=== PATIENT | male | born 1960 | race Caucasian/White ===

== ENCOUNTER 2016-11-11 22:12 | Emergency (ER) | payer BC, OTHER ==
[2016-11-11] MEDS ORDERED: Tetan/Diph/Pertus SYR(Tdap)* 0.5 ML SYR(BOOSTRIX) use SYR IM ONE (23:22)
[2016-11-12] MEDS ORDERED: Ciprofloxacin TAB* 500 MG PO ONE (00:58)
[2016-11-12] MEDS ORDERED: Amoxicillin/Clavulanate TAB* 500 MG PO ONE (01:02)
[2016-11-12] MEDS ORDERED: Amoxicillin/Clavulanate TAB* 875 MG PO ONE (01:04)
--- NOTE | 2016-11-12 01:12 | ED ---
Lower Extremity - HPI Summary HPI Summary: Pt here w/ RLE puncture wound - foot slipped on dock and scraped bello on dock - [place]ald[place] water exposed. Bleeding. He cleaned with some peroxide as well. Tetanus is UTD. Area if throbbing but he declines pain medication at this time. Denies numbness, tingling, weakness. - History of Current Complaint Chief Complaint: EDLacSutureRecheck Stated Complaint: RIGHT LEG LAC Time Seen by Provider: 11/11/16 23:14 Hx Obtained From: Patient Pain Intensity: 5 - Allergies/Home Medications Allergies/Adverse Reactions: Allergies Allergy/AdvReac Type Severity Reaction Status Date / Time No Known Allergies Allergy Verified 11/11/16 22:23 PMH/Surg Hx/FS Hx/Imm Hx Previously Healthy: Yes Endocrine/Hematology History: Denies: Hx Anticoagulant Therapy, Hx Blood Disorders - Immunization History Date of Tetanus Vaccine: unknown Infectious Disease History: Yes Infectious Disease History: Denies: Traveled Outside the [place] in Last 30 Days - Social History Occupation: Employed Full-time Lives: With Family Alcohol Use: Occasionally Hx Substance Use: No Substance Use Type: Reports: None Hx Tobacco Use: No Smoking Status (MU): Never Smoked Tobacco Review of Systems Constitutional: Negative Negative: Fever, Chills Positive: no symptoms reported Musculoskeletal: Other - bello is sore where he attained injury Skin: Other - see HPI Neurological: Negative Negative: Weakness, Paresthesia, Numbness Psychological: Normal All Other Systems Reviewed And Are Negative: Yes Physical Exam Triage Information Reviewed: Yes Vital Signs On Initial Exam: Initial Vitals Temp Pulse Resp BP Pulse Ox 98.3 F 67 16 142/97 99 11/11/16 22:18 11/11/16 22:18 11/11/16 22:18 11/11/16 22:18 11/11/16 22:18 Vital Signs Reviewed: Yes Appearance: Positive: Well-Appearing, No Pain Distress - mild, Well-Nourished Skin: Positive: Warm - gouged puncture wound over Rt middle 1/3 of anterior tibial region - oozing blood Head/Face: Positive: Normal Head/Face Inspection Eyes: Positive: Normal ENT: Positive: Hearing grossly normal Respiratory/Lung Sounds: Positive: Breath Sounds Present Cardiovascular: Positive: Normal, Pulses are Symmetrical in both Upper and Lower Extremities Musculoskeletal: Positive: Normal, Strength/ROM Intact Neurological: Positive: Normal, Sensory/Motor Intact, Alert, Oriented to Person Place, Time, CN Intact II-III Psychiatric: Positive: Normal Procedures - Laceration/Wound Repair 1 Location: upper extremity - Rt LE Description: Irregular - jagged puncture wound Length, Depth and Shape: 3mm puncture wound x 4mm deep Betadine Prep?: No Irrigated w/ Saline (ccs): 250 - hibaclens solution Laceration/Wound Explored: contaminated - wood flecks Number of Sutures: 0 Layer Closure?: No Sterile Dressing Applied?: Yes - sterile saline packing covered w/ sterile gauze and wrapped w/ coban Diagnostics - Vital Signs Vital Signs Temp Pulse Resp BP Pulse Ox 11/11/16 23:18 98.3 F 67 18 142/87 100 11/11/16 22:18 98.3 F 67 16 142/97 99 - Laboratory Lab Statement: Any lab studies that have been ordered have been reviewed, and results considered in the medical decision making process. Lower Extremity Course/Dx - Course Course Of Treatment: Discussed option of closure with mattress suture d/t area of high tension vs. leaving open healing by second intention alone vs. packing w / healing by second intention w/ Dr. Doll. Pt agreed to packing and will return to ED in 2 days for packing change, wound check. Started anbx d/t nature of injury. Initially considered cipro to cover pseudomonas however pt is very active and risk of tendon injury is a serious concern for him (plans to run a 13 mile race in a couple of weeks). Irrigated area well and care taken to pack in sterile fashion so started augmentin to cover staph/strep and a few atypicals. Close monitoring advised and danger s/sx of when to return to ED reviewed. Pt voices understanding. - Diagnoses Provider Diagnoses: Puncture wound of right lower leg - Physician Notifications Discussed Care Of Patient With: Dr. Finn Discharge - Discharge Plan Condition: Stable Disposition: HOME Prescriptions: Amoxicillin/Clavulanate TAB* [Augmentin TAB 875*] 875 mg PO BID #19 tab Patient Education Materials: Puncture Wound (ED) Referrals: No Primary Care Phys,NOPCP [Primary Care Provider] - Additional Instructions: You have sterile saline packing in your wound at this time. Keep pressure dressing in place until wound dressing change in 2 days (return to ED for wound cleanse and packing change). Rest, Ice, Compress, Elevate Ibuprofen with food for pain - alternate with acetaminophen Complete antibiotics *If you develop redness, swelling, purulent drainage, fever, streaking, return to ED
[2016-11-12 01:16] VITALS: BP 140/75
--- NOTE | 2016-11-12 07:49 | RAD ---
HISTORY: Penetrating trauma to right lower extremity COMPARISONS: None VIEWS: 4, Frontal and lateral views of the right foreleg FINDINGS: BONE DENSITY: Normal. BONES: There is no displaced fracture. JOINTS: There is no arthropathy. ALIGNMENT: There is no dislocation. SOFT TISSUES: Unremarkable. OTHER FINDINGS: There is no radiopaque foreign body. IMPRESSION: NO ACUTE OSSEOUS INJURY. NO RADIOPAQUE FOREIGN BODY. IF SYMPTOMS PERSIST, RECOMMEND REPEAT IMAGING.
== END 2016-11-12 01:16 | disposition home or self-care (01) ==
LOC: ED 22:12
DX: S81.831A Puncture wound without foreign body, right lower leg, initial encounter (principal); W22.8XXA Striking against or struck by other objects, initial encounter; Y93.9 Activity, unspecified; Y92.9 Unspecified place or not applicable; Y99.9 Unspecified external cause status
CPT/HCPCS: 99282; A9270-GY

== ENCOUNTER → 2016-11-13 17:23 | Emergency (ER) | payer BC ==
[2016-11-13 17:26] VITALS: BP 130/80
--- NOTE | 2016-12-06 08:48 | ED ---
ED Suture/Wound Check - HPI Summary HPI Summary: Pt here for Rt bello wound recheck and packing change from puncture wound injury 2 days ago. Dressing remains in place and is dry. Area is sore - has not been resting - has been doing yard work (ie. squatting, kneeling, bending, etc). Denies fever, chills, N/V, numbness, tingling, weakness. Taking medications as directed. - History Of Current Complaint Chief Complaint: EDGeneral Stated Complaint: WOUND RECHECK Time Seen by Provider: 11/13/16 18:15 Hx Obtained From: Patient Pain Intensity: 4 Pain Scale Used: 0-10 Numeric - Allergies/Home Medications Allergies/Adverse Reactions: Allergies Allergy/AdvReac Type Severity Reaction Status Date / Time No Known Allergies Allergy Verified 11/11/16 22:23 PMH/Surg Hx/FS Hx/Imm Hx Previously Healthy: Yes Endocrine/Hematology History: Denies: Hx Anticoagulant Therapy, Hx Blood Disorders - Immunization History Date of Tetanus Vaccine: unknown Infectious Disease History: No Infectious Disease History: Denies: Traveled Outside the [place] in Last 30 Days - Social History Alcohol Use: Occasionally Hx Substance Use: No Substance Use Type: Reports: None Hx Tobacco Use: No Smoking Status (MU): Never Smoked Tobacco Review of Systems Negative: Fever, Chills All Other Systems Reviewed And Are Negative: Yes Physical Exam Triage Information Reviewed: Yes Vital Signs On Initial Exam: Initial Vitals Temp Pulse Resp BP Pulse Ox 98.4 F 78 18 130/80 98 11/13/16 17:24 11/13/16 17:24 11/13/16 17:24 11/13/16 17:24 11/13/16 17:24 Vital Signs Reviewed: Yes Appearance: Positive: Well-Appearing, No Pain Distress, Well-Nourished Skin: Positive: Warm - Rt bello w/ erythema at edges of bandage border - bandage appears to be snuggly in place - dry; upon removal, serosanginous d/c from wound onto bandage; packing removed w/o difficulty, irrigated w/ sterile saline and repacked w/ sterile gauze strip; erythema reduces once bandage removed and no erythema about wound itself - suspect this was from pressure of bandage itself - no streaking - pt tolerated dressing change well Head/Face: Positive: Normal Head/Face Inspection Respiratory/Lung Sounds: Positive: Breath Sounds Present Cardiovascular: Positive: Pulses are Symmetrical in both Upper and Lower Extremities Musculoskeletal: Positive: Normal, Strength/ROM Intact Neurological: Positive: Normal, Sensory/Motor Intact Psychiatric: Positive: Normal Procedures - Procedure Summary Procedure Summary: see PE for dressing change details Diagnostics - Vital Signs Vital Signs Temp Pulse Resp BP Pulse Ox 11/13/16 19:13 99.2 F 11/13/16 17:26 98.4 F 79 18 130/80 99 11/13/16 17:24 98.4 F 78 18 130/80 98 - Laboratory Lab Statement: Any lab studies that have been ordered have been reviewed, and results considered in the medical decision making process. Course/Dx - Course Course Of Treatment: Pt presents for wound recheck and dressing change. Appears to be healing well and w/o acute infection. Packign and dressing changed - looser this time to reduce risk of swelling and skin irritation. Advised pt not to be so aggressive with the area to prevent aggravation and prevention of wound healing. WIll elevate, rest and ice as needed. F/u w/ wound clinic as directed. Return w/ danger s/sx as needed. Pt agrees w/ plan. - Clinical Impression Provider Diagnoses: Encounter for wound re-check Discharge - Discharge Plan Condition: Stable Disposition: HOME Patient Education Materials: Puncture Wound (ED) Referrals: [facility] [Outside] No Primary Care Phys,NOPCP [Primary Care Provider] - Additional Instructions: Your wound appears to be healing well however you have developed some redness above and below the wound which was presumed to be from a prolonged pressure dressing worn for 2 days along with activity, increasing inflammation of the already inflammed tissue. Your packing was removed today, wound cleaned and repacked - triple anbx dressing + Telfa + gauze + ANAND wrap. Due to the risky nature of this wound (ie. injured by wood and wald[place] water exposure), it is advised that you follow-up with the wound clinic in the next 1-2 days. Call tomorrow morning to schedule an appointment. Continue your antibiotics unless directed otherwise. Rest, ice, elevate If wound dressing becomes saturated with blood, remove - wash wound with soap and water - rinse well and reapply triple anbx ointment + clean dressing Wound Clinic: You may also establish with a PCP -referral line provided today. *If you develop worsening of redness, purulent drainage, excessive bleeding, fever, chills, return to ED
== END | disposition home or self-care (01) ==
LOC: ED 17:23
DX: S80.921D Unspecified superficial injury of right lower leg, subsequent encounter (principal); X58.XXXD Exposure to other specified factors, subsequent encounter
CPT/HCPCS: 99282

== ENCOUNTER 2018-05-08 07:44 | Inpatient (IN) | payer BC, OTHER ==
[2018-05-08] MEDS ORDERED: Aspirin 81 mg CHEW TAB* 81 MG TAB.CHEW PO ONE (07:49)
--- NOTE | 2018-05-08 07:58 | ED ---
HPI Chest Pain - HPI Summary HPI Summary: This pt is a 57 y/o male presenting to [facility] c/o midsternal chest pain since last night. Pt reports his chest pain began around 22:00, which he describes as pressure, burning, and nonradiating. He notes he did not have a big dinner prior to onset of chest pain, at around 18:30 pt had a sandwich at the [employer] that included cheese, pesto, caramelized onions, spinach, diet coke, and a few chips. Pt took Tums yesterday with minimal relief of chest pain. Upon waking up this morning pt states his chest pain persisted. Additionally reports nausea. He currently rates his pain 7/10 in severity. Denies vomiting, diaphoresis, SOB, palpitations, lightheadedness, dizziness. Chest pain is mildly alleviated with ambulation and it is aggravated with lying still. Pt has never had this pain in the past. Denies any PMHx. He does not take medications on a daily basis. Denies tobacco and drug use, but admits to a few drinks of alcohol a week. He did not drink alcohol yesterday. FHx of grandfather with fatal PR at an age younger than 55 years old. - History of Current Complaint Chief Complaint: EDChestPainROMI Time Seen by Provider: 05/08/18 07:48 Hx Obtained From: Patient Onset/Duration: Started Hours Ago, Still Present Timing: Lasting Hours Current Severity: Moderate Pain Intensity: 7 Pain Scale Used: 0-10 Numeric Chest Pain Location: Mid Sternal Chest Pain Radiates: No Character: Burning, Pressure/Squeezing - Pressure Aggravating Factor(s): Rest Alleviating Factor(s): Other: - ambulating Associated Signs and Symptoms: Positive: Chest Pain, Nausea. Negative: Dizziness, Shortness of Breath, Fever, Chills, Lightheadedness, Diaphoresis, Palpitations, Vomiting - Allergy/Home Medications Allergies/Adverse Reactions: Allergies Allergy/AdvReac Type Severity Reaction Status Date / Time No Known Allergies Allergy Verified 11/11/16 22:23 Home Medications: Home Medications NK [No Home Medications Reported] 05/08/18 [History Confirmed 05/08/18] PMH/Surg Hx/FS Hx/Imm Hx Endocrine/Hematology History: Denies: Hx Anticoagulant Therapy, Hx Blood Disorders, Hx Diabetes Cardiovascular History: Denies: Hx Hypertension - Surgical History Surgery Procedure, Year, and Place: Tonsillectomy - Immunization History Date of Tetanus Vaccine: unknown Infectious Disease History: No Infectious Disease History: Denies: Traveled Outside the [place] in Last 30 Days - Family History Known Family History: Positive: Cardiac Disease - Grandfather with fatal PR at an age earlier than 55 Family History: Mother with CA - Social History Alcohol Use: Occasionally Hx Substance Use: No Substance Use Type: Reports: None Hx Tobacco Use: No Smoking Status (MU): Never Smoked Tobacco Review of Systems Negative: Fever, Chills, Skin Diaphoresis Positive: Chest Pain. Negative: Palpitations Negative: Shortness Of Breath Positive: Nausea. Negative: Vomiting Neurological: Other - NEG: lightheadedness, dizziness All Other Systems Reviewed And Are Negative: Yes Physical Exam - Summary Physical Exam Summary: VITAL SIGNS: Reviewed. GENERAL: Patient is a well-developed and nourished male who is lying comfortable in the stretcher. Patient is not in any acute respiratory distress. HEAD AND FACE: No signs of trauma. No ecchymosis, hematomas or skull depressions. No sinus tenderness. EYES: PERRLA, EOMI x 2, No injected conjunctiva, no nystagmus. EARS: Hearing grossly intact. Ear canals and tympanic membranes are within normal limits. MOUTH: Oropharynx within normal limits. NECK: Supple, trachea is midline, no adenopathy, no JVD, no carotid bruit, no c- spine tenderness, neck with full ROM. CHEST: Symmetric, no tenderness at palpation LUNGS: Clear to auscultation bilaterally. No wheezing or crackles. CVS: Regular rate and rhythm, S1 and S2 present, no murmurs or gallops appreciated. ABDOMEN: Soft, non-tender. No signs of distention. No rebound, no guarding, and no masses palpated. Bowel sounds are normal. EXTREMITIES: FROM in all major joints, no edema, no cyanosis or clubbing. NEURO: Alert and oriented x 3. No acute neurological deficits. Speech is normal and follows commands. SKIN: Dry and warm Triage Information Reviewed: Yes Vital Signs On Initial Exam: Initial Vitals Temp Pulse Resp BP Pulse Ox 97.6 F 52 16 145/90 100 05/08/18 07:46 05/08/18 07:46 05/08/18 07:46 05/08/18 07:46 05/08/18 07:46 Vital Signs Reviewed: Yes Diagnostics - Vital Signs Vital Signs Temp Pulse Resp BP Pulse Ox 05/08/18 07:46 97.6 F 52 16 145/90 100 - Laboratory Result Diagrams: 05/08/18 08:01 05/08/18 08:01 Lab Statement: Any lab studies that have been ordered have been reviewed, and results considered in the medical decision making process. - Radiology Chest XR Radiology Interpretation Completed By: Radiologist Summary of Radiographic Findings: IMPRESSION: No active cardiopulmonary disease is noted. Dr. Pereyra has reviewed this report. - EKG 08:08 Cardiac Rate: Bradycardia - at 49 bpm EKG Rhythm: Sinus Bradycardia EKG Comparison: Other - no old EKG for comparison Summary of EKG Findings: No ST elevations. Q wave in leads II, III, and aVF. Re-Evaluation - Re-Evaluation First Eval Re-Evaluation Time: 08:47 Comment: I discussed the test results with the pt. Awaiting cardiology consult. Second Eval Re-Evaluation Time: 08:54 Comment: Dr. Mercedes, gun profiler, is at bedside. Chest Pain Course/Dx - Course Assessment/Plan: This pt is a 57 y/o male presenting [facility] [place]/o midsternal chest pain since last night. Pt reports his chest pain began around 22:00, which he describes as pressure, burning, and nonradiating. He notes he did not have a big dinner prior to onset of chest pain, at around 18:30 pt had a sandwich at the [employer] that included cheese, pesto, caramelized onions, spinach, diet coke, and a few chips. Pt took Tums yesterday with minimal relief of chest pain. Upon waking up this morning pt states his chest pain persisted. Additionally reports nausea. He currently rates his pain 7/10 in severity. Denies vomiting, diaphoresis, SOB, palpitations, lightheadedness, dizziness. Chest pain is mildly alleviated with ambulation and it is aggravated with lying still. Pt has never had this pain in the past. Denies any PMHx. He does not take medications on a daily basis. Denies tobacco and drug use, but admits to a few drinks of alcohol a week. He did not drink alcohol yesterday. FHx of grandfather with fatal PR at an age younger than 55 years old. Blood test results without any significant abnormality except for glucose 121, AST 66, CPK is 542, CK-MB is 107, troponin is 3.06. Urinalysis is negative for UTI. Chest x -ray impression: No acute pathology. In the ED course the patient was given aspirin, nitroglycerin and Lopressor. Troponin is elevated therefore the patient was given heparin. At this point I discussed my physical exam and findings with Dr. Mercedes from cardiology who came and assessed the patient. After his assessment he thinks that the patient has a non-STEMI and he requests for the patient to be admitted to hospitalist service to the ICU and likely the patient will go to the laboratory manager. At this point the patient is hemodynamically stable, alert and oriented 3. I discussed my physical exam, findings and test results with Dr. Almendarez from the hospitalist services and she agrees to admit patient to her services. Patient is hemodynamically stable alert and oriented x 3. - Chest Pain Differential Diagnosis/HQI/PQRI: Acute PR, ACS, Angina, CHF, Chest Wall, GI Disease, Lower Respiratory Infection, Pulmonary Edema - Diagnoses Provider Diagnoses: Non-STEMI (non-ST elevated myocardial infarction) - Provider Notifications Discussed Care Of Patient With: Tera Mercedes Time Discussed With Above Provider: 08:50 Instructed by Provider To: Other - I discussed the case with Dr. Mercedes, gun profiler, who will come and see the pt in the ED. [09:12] I discussed with Dr. Almendarez, hospitalist, who accepted the pt for admission. - Critical Care Time Critical Care Time: 75-104 min Discharge - Sign-Out/Discharge Documenting (check all that apply): Patient Departure - [place] [facility] [place] Discharge Plan Condition: Stable Disposition: ADMITTED TO [facility] - Billing Disposition and Condition Condition: STABLE Disposition: Admitted to [facility] - Attestation Statements Document Initiated by Josee: Yes Documenting Scribe: Amanda Casanova Provider For Whom Riley is Documenting (Include Credential): Nghia Pereyra MD Scribe Attestation: Amanda Strong, scribed for Nghia Pereyra MD on 05/08/18 at 1830. Scribe Documentation Reviewed: Yes Provider Attestation: The documentation as recorded by the [email or web address], Amanda Lowoa accurately reflects the service I personally performed and the decisions made by me, Nghia Pereyra MD Status of Riley Document: Viewed
[2018-05-08 08:10] LABS: ABS Basophils 0 10^3/ul (0-0.2); ABS Eosinophils 0.1 10^3/ul (0-0.6); ABS Lymphocytes 1.3 10^3/ul (1.0-4.8); ABS Monocytes 0.7 10^3/ul (0-0.8); ABS Neutrophils 6.9 10^3/ul (1.5-7.7); ABS Nucleated RBC 0 10^3/ul; Eosinophil % 0.6 %; Hematocrit 44 % (42-52); Hemoglobin 15.5 g/dl (14.0-18.0); Lymphocyte % 14.7 %; Mean Corpuscular HGB Conc 35 g/dl (31-36); Mean Corpuscular Hemoglobin 33 pg (27-31); Mean Corpuscular Volume 94 fL (80-94); Mean Platelet Volume 7.8 fL (7.4-10.4); Nucleated Red Blood Cells % 0.1; Platelet Count 176 10^3/ul (150-450); Red Cell Distribution Width 13 % (10.5-15)
[2018-05-08 08:36] LABS: EGFR Non-African American 87.6 (>60)
[2018-05-08] MEDS ORDERED: Heparin for STEMI(*) 5,000 UNITS/ML 1 ML VIAL IV ONE (08:44)
[2018-05-08] MEDS ORDERED: Nitroglycerin TAB 0.4 MG* 0.4 MG TAB SL ONE (08:44)
[2018-05-08] MEDS ORDERED: Metoprolol Tartrate TAB* 25 MG PO ONE (08:44)
[2018-05-08] MEDS ORDERED: NS 0.9% 1000 ML*IV.FLUID IV ONE (08:52)
[2018-05-08 08:58] LABS: Urine Appearance Clear; Urine Blood Negative (Negative); Urine Color Yellow; Urine Ketones Negative (Negative); Urine Protein Negative (Negative); Urine Specific Gravity 1.018 (1.010-1.030); Urine Urobilinogen Negative (Negative)
--- NOTE | 2018-05-08 09:57 | ECHO ---
Patient: BERLIN JOSHI [facility] Rec#: [id number] : 1960 Date: 05/08/2018 Age: 57y Height: 180 cm / 70.9 in Weight: 88.45 kg / 194.9 lbs Sex: M BSA: 2.08 Room#: ED 3 Admit Date#: 05/08/2018 Type: Inpatient Referring: Tera Mercedes MD Reading: Tera Mercedes MD Silk Presser: Elinor Rodrigez,ANTONIOCS,RDMS CC: Noe Fonseca MD Transthoracic Echocardiogram Indication: CP BP: 145/90 HR: 55 Rhythm: Bradycardia Findings History: Previously healthy. Family history of CAD. Technical Comments: The study quality is fair. Left Ventricle: The left ventricular chamber size is normal. Mild concentric left ventricular hypertrophy is observed. There is a focal wall motion abnormality present. There is mildly decreased left ventricular systolic function. The estimated ejection fraction is 45-50%. There is no consistent Doppler evidence of clinically significant diastolic dysfunction. The mid inferior, and apical inferior wall segments are hypokinetic (score 2). Overall wallmotion score index is 2.00 Left Atrium: The left atrium is mildly dilated. Right Ventricle: The right ventricular chamber size and systolic function are within normal limits. Right Atrium: The right atrial cavity size is normal. Aortic Valve: The aortic valve is trileaflet. There is no evidence of aortic valve thickening. Systolic excursion of the aortic valve is normal. There is no evidence of aortic regurgitation. There is no evidence of aortic stenosis. Mitral Valve: The mitral valve leaflets appear normal. There is a trace of mitral regurgitation. There is no evidence of mitral stenosis. Tricuspid Valve: The tricuspid valve leaflets are normal. There is trace tricuspid regurgitation. No pulmonary hypertension is noted. Pulmonic Valve: The pulmonic valve appears normal. There is a trace pulmonic regurgitation. Pericardium: There is no significant pericardial effusion. Aorta: The aortic root appears normal. There is no dilatation of the aortic arch. Pulmonary Artery: The main pulmonary artery appears normal. Venous: The inferior vena cava is dilated. There is a greater than 50% respiratory change in the inferior vena cava dimension. Summary: There was not any prior study for comparison. Conclusions Mild concentric left ventricular hypertrophy is observed. The estimated ejection fraction is 45-50%. There is mildly decreased left ventricular systolic function. The mid inferior, and apical inferior wall segments are hypokinetic (score 2). There is no evidence of aortic stenosis. There is a trace of mitral regurgitation. There is trace tricuspid regurgitation. There is no significant pericardial effusion. Measurements Name Value Normal Range RVIDd (AP) 2D 3.3 cm (0.9 - 2.6) RVDdMajor (2D) 3.6 cm (2.2 - 4.4) RAd ISD 4CH 4.8 cm (3.4 - 4.9) RA (A4C)W 4.3 cm (2.9 - 4.6) IVSd (2D) 1.3 cm (0.6 - 1) LVPWd (2D) 1.3 cm (0.6 - 1) LVIDd (2D) 4.7 cm (3.6 - 5.4) LVIDs (2D) 3.8 cm - LV FS (2D) 20 % (25 - 45) Aortic Annulus 2.6 cm (1.4 - 2.6) Ao root diameter (2D) 3.6 cm (2.1 - 3.5) Ascending Ao 3.2 cm (2.1 - 3.4) Aortic arch 3.4 cm (1.8 - 3.4) LA dimension (AP) 2D 4.1 cm (2.3 - 3.8) LAd ISD 4CH 5.2 cm (2.9 - 5.3) LA ISD 4CH W 4.9 cm (2.5 - 4.5) Name Value Normal Range LA ESV SP 4CH (A/L) 84.83 ml - LA ESV SP 2CH (A/L) 78.07 ml - LA ESV BP (A/L) 82.29 ml - LA ESV BP (A/L) index 39 ml/m2 - LA ESV SP 4CH (MOD) 80.02 ml - LA ESV SP 2CH (MOD) 74.16 ml - Name Value Normal Range MV E-wave Vmax 0.5 m/sec - MV deceleration time 340 msec - MV A-wave Vmax 0.5 m/sec - MV E:A ratio 1 ratio - P. vein S-wave Vmax 0.5 m/sec - P. vein D-wave Vmax 0.3 m/sec - P. vein S:D Vmax ratio 1.9 ratio - P. vein A-wave duration 118 msec - LV septal e' Vmax 0.07 m/sec - LV lateral e' Vmax 0.09 m/sec - LV E:e' septal ratio 8 ratio - LV E:e' lateral ratio 6 ratio - Name Value Normal Range AV Vmax 1 m/sec - AV VTI 24 cm - AV peak gradient 4 mmHg - AV mean gradient 2.2 mmHg - LVOT Vmax 0.8 m/sec - LVOT VTI 18.4 cm - LVOT peak gradient 2.6 mmHg - LVOT mean gradient 1.2 mmHg - OSCAR Vmax 0.9 m/sec - Name Value Normal Range TR Vmax 2.5 m/sec - TR peak gradient 25 mmHg - RAP 3 mmHg - RVSP 28 mmHg - IVC diameter 2.3 cm - Name Value Normal Range PV Vmax 0.6 m/sec - PV peak gradient 1.4 mmHg - Wallmotion BAS Not Seen BA Not Seen BAL Not Seen GILMER Not Seen BI Not Seen BIS Not Seen MAS Not Seen MA Not Seen MAL Not Seen MIL Not Seen NV Hypokinetic MIS Not Seen Not Seen AA Not Seen AL Not Seen AI Hypokinetic APEX Not Seen
[2018-05-08] MEDS ORDERED: Nitroglycerin TAB 0.4 MG* 0.4 MG TAB SL PRN ×2 (09:58→13:05)
[2018-05-08] MEDS ORDERED: Morphine VIAL* 4 MG/ML VIAL (1 ml vial) IV PRN (09:58)
[2018-05-08] MEDS ORDERED: Heparin DRIP 25,000 UNITS(*) 25,000 UNITS/500 ML BAG IV SCH (10:15)
[2018-05-08] MEDS ORDERED: Ticagrelor* 90 MG TAB PO ONE (10:34)
[2018-05-08] MEDS ORDERED: Metoprolol Tartrate IV* 1 MG/ML 5 ML VIAL ONE (11:22)
[2018-05-08] MEDS ORDERED: fentaNYL* 50 MCG/ML 2 ML VIAL (100 MCG VIAL) ONE (11:26)
[2018-05-08] MEDS ORDERED: Heparin(*) 1000 UNIT/ML 10 ML VIAL CATH LAB IV ONE (11:27)
[2018-05-08] MEDS ORDERED: nitroGLYCERIN DRIP* 25,000 MCG/250 ML BTL ONE (11:27)
[2018-05-08] MEDS ORDERED: Midazolam* 1 MG/ML 10 ML VIAL (10 MG) ONE (11:27)
[2018-05-08] MEDS ORDERED: VERAPAMIL 2.5 MG/ML 2 ML VIAL ** 5 mg/2 ml ONE (11:27)
[2018-05-08] MEDS ORDERED: Heparin 2 UNITS/ML IVPREMIX* 3,000 ML IV ONE (11:27)
[2018-05-08] MEDS ORDERED: Lidocaine 1% INJ* 10 MG/ML 30 ML SDV ONE (11:27)
[2018-05-08] MEDS ORDERED: Iohexol 350 (CONTRAST) 200 ML MDV IV ONE ×3 (11:28→12:30)
[2018-05-08 11:51] LABS: INR 0.95 (0.77-1.02)
[2018-05-08] MEDS ORDERED: Metoprolol Tartrate IV* 1 MG/ML 5 ML VIAL IV ONE (12:00)
[2018-05-08] MEDS ORDERED: Bivalirudin(*) 250 MG VIAL ONE (12:12)
[2018-05-08] MEDS ORDERED: Ondansetron INJ* 2 MG/ML VIAL IV PRN (13:05)
[2018-05-08] MEDS ORDERED: Zolpidem TAB* 5 MG PO PRN (13:05)
[2018-05-08] MEDS ORDERED: Docusate CAP* 100 MG PO PRN (13:05)
[2018-05-08] MEDS ORDERED: Acetaminophen TAB* 325 MG PO PRN (13:05)
[2018-05-08] MEDS ORDERED: Atorvastatin* 80 MG TAB PO ONE (13:15)
[2018-05-08] MEDS: NS 0.9% 1000 ML* 1,000 ML IV SCH ×2 (13:51→16:56)
--- NOTE | 2018-05-08 15:08 | HP ---
CC: Dr. Fonseca; Dr. Mercedes * HISTORY AND PHYSICAL: DATE OF ADMISSION: 05/08/18 TIME OF EVALUATION: 9:40 a.m. PRIMARY CARE PROVIDER: Dr. Fonseca. CONSULTING FIXER BOARDING ROOM: Dr. Mercedes. CHIEF COMPLAINT: Chest pain. HISTORY OF PRESENT ILLNESS: Mr. Sue is a 57-year-old male with no significant past medical history who presented to the emergency room with complaints of chest pain. He states that he was in his usual state of health until last night while he was watching TV and working on his computer and he started to experience retrosternal chest discomfort that he rates as an 8/10. He states that the pain was not radiating. He cannot describe the nature of the pain, but he thought that due to the location, this could be heartburn, so he asked his to go buy some Tums. He took the medication, had some relief, but states that he was uncomfortable the whole night. This morning, the patient woke up and was planning to go and exercise as usual, but as the discomfort was still present, he decided to come to the emergency room for further evaluation. He denies palpitations, nausea, vomiting, diaphoresis, or dyspnea. The patient states he saw his PCP a couple weeks ago and was told "everything was fine." He describes having "borderline cholesterol" and the plan was to continue diet and exercise. He states that he has not been exercising as much as he usually does because he hurt his back and was taking some ibuprofen for pain. He denies fever, chills, cough, or any similar episodes in the past. PAST MEDICAL HISTORY: The patient denies. FAMILY HISTORY: His maternal grandfather of a heart attack in his early 40s. Father has diabetes. Mother had polymyositis and Hodgkin's lymphoma. SOCIAL HISTORY: The patient denies tobacco and drug use. He occasionally drinks alcohol. Surrogate decision maker is his , Elinor Sue, phone number is [phone]. REVIEW OF SYSTEMS: A 14-review of systems was performed and all the pertinent negatives and positive findings as per the HPI. PHYSICAL EXAMINATION GENERAL: The patient is a pleasant, middle-aged gentleman, lying in the ED stretcher, in no acute distress. VITAL SIGNS: Temperature 97.6, heart rate 66, respiratory rate 16, oxygen saturation 98% on room air, blood pressure 133/84. HEENT: Pupils are equal. Moist mucous membranes. CHEST: Breath sounds present bilaterally with no added sounds. CVS: Normal S1 and S2. Regular rate and rhythm. ABDOMEN: Soft, bowel sounds are present. EXTREMITIES: No edema. NEUROLOGIC: He is alert and oriented x3. Able to move all 4 extremities. DIAGNOSTIC STUDIES/LAB DATA: The patient had a CBC that showed a WBC of 9, hemoglobin of 15.5, hematocrit of 44, platelets of 176 with 76% neutrophils. APTT is 30.8. Chemistry showed sodium 137, potassium 4.4, chloride 103, bicarb 27, BUN of 18, creatinine of 0.9, glucose of 121, lactic acid of 1, calcium 10.1 , magnesium 1.9. LFTs showed total bilirubin of 0.6, AST of 56, ALT of 30, alk phos of 81, CPK of 142, CK-MB of 107, troponin 3.06, BNP 43, TSH 1.4. Urinalysis was negative. EKG done on 05/08/18 at 8:08 showed sinus bradycardia at 49 beats per minute with Q waves in II, III and aVF. Peak Q waves in V3 and V4. No prior EKG to compare. Chest x-ray showed no active cardiopulmonary disease. Transthoracic echocardiogram showed mild concentric LVH with ejection fraction of 45% to 50%, mildly decreased left ventricular systolic function with mid inferior and apical inferior wall segments are hypokinetic. ASSESSMENT AND PLAN: Mr. Sue is a 57-year-old male with no significant past medical history who presents to the emergency room with more than 12 hours of chest discomfort, found to have a non-ST elevation myocardial infarction. 1. Non-ST elevation myocardial infarction. The patient is having an inferior wall myocardial infarction with wall motion abnormalities seen on his EKG. He has had pain for more than 12 hours and he already shows elevation of AST, CPK, CK-MB and troponin. He received aspirin, nitroglycerin, metoprolol, and heparin bolus in the emergency room and he states that his chest pain is less intense now, but is still present and he grades it a 7/10. He received 1 dose of morphine, another dose of nitroglycerin. We will continue heparin drip and the plan is for him to undergo cardiac cath this morning. I am going to add high dose atorvastatin, but the remainder of the management will depend on his cardiac cath findings. 2. DVT prophylaxis. The patient has a score of 2 on DVT Prophylaxis Risk Assessment Guide and he will be on a heparin drip. 3. Code status is full. TIME SPENT: Approximately 50 minutes were spent with the patient and 's interview, medical records review, physical examination to complete the admission, more than half of this time was spent [id number] with the patient and coordination of care. [id number]/[facility] #: [id number] REJI
[2018-05-08] MEDS ORDERED: Atorvastatin* 80 MG TAB PO SCH ×2 (17:00→21:00)
--- NOTE | 2018-05-08 20:51 | CONS ---
CC: Dr. Noe Fonseca; Dr. Brandon Byrd * CARDIOLOGY CONSULTATION: DATE OF CONSULT: 05/08/18 INDICATION FOR CONSULTATION: Chest pain, acute coronary syndrome. HISTORY OF PRESENT ILLNESS: The patient is a 57-year-old gentleman with very little past medical history, who came to the emergency room with chest pain. The patient states that he was working comfortably last night when he started developing chest pain. He did take some Tums for the discomfort with very little relief. He slept poorly overnight. This morning when he woke up, he still had some mild chest discomfort and decided to come to the emergency room. On arrival to the emergency room, his EKG shows normal sinus rhythm. He has J -point elevation. He does have nondiagnostic Q waves in the inferior leads. The patient's initial troponin level was 3.0. The decision was to have the patient to undergo cardiac catheterization. PAST MEDICAL HISTORY: None. PAST SURGICAL HISTORY: Tonsillectomy in the distant past. MEDICATIONS: None. ALLERGIES: None. FAMILY HISTORY: No family history of early coronary artery disease. SOCIAL HISTORY: He is . He exercises regularly. He denies tobacco. Rare alcohol intake. REVIEW OF SYSTEMS: Negative for fevers or chills. Negative for changes in bowel or bladder habits. Negative for change in weight. PHYSICAL EXAM: Height is 5 feet 11 inches, weight 203 pounds, temperature 98.6 , heart rate is 60, blood pressure 130/71, respiratory rate is 19, oxygen saturation 98% on room air. Sclerae anicteric. Oropharynx is pink without erythema. Carotids are 2+ without bruits. JVD is normal. Thyroid is normal. Cardiac Exam: S1, S2 without any murmurs, rubs, or gallops. Lungs are clear to auscultation bilaterally with no dullness to percussion. Abdomen is soft, nontender, nondistended. Normoactive bowel sounds. Extremities: Showed no edema. He has 2+ throughout. The patient is awake, alert, and oriented. He moves all 4 extremities equally. DIAGNOSTIC STUDIES/LAB DATA: CBC within normal limits. Chemistries within normal limits. Initial troponin level 3.06, TSH 1.4. IMPRESSION: This is a 57-year-old gentleman with little past medical history, who was admitted to the emergency room with chest pain. The patient's initial troponin level is 3.0. The patient was given heparin, aspirin, and Brilinta in the emergency room. The patient will undergo cardiac catheterization for definitive evaluation. [id number]/[facility] #: [id number] REJI
[2018-05-08] MEDS: Atorvastatin* 80 MG TAB PO SCH (20:59)
[2018-05-08] MEDS: Ticagrelor* 90 MG TAB PO SCH (20:59)
[2018-05-09 06:48] LABS: ABS Basophils 0 10^3/ul (0-0.2); ABS Eosinophils 0.1 10^3/ul (0-0.6); ABS Lymphocytes 1.5 10^3/ul (1.0-4.8); ABS Monocytes 0.8 10^3/ul (0-0.8); ABS Neutrophils 5.1 10^3/ul (1.5-7.7); ABS Nucleated RBC 0.1 10^3/ul; Eosinophil % 0.8 %; Hematocrit 38 % (42-52); Hemoglobin 13.6 g/dl (14.0-18.0); Lymphocyte % 19.6 %; Mean Corpuscular HGB Conc 36 g/dl (31-36); Mean Corpuscular Hemoglobin 34 pg (27-31); Mean Corpuscular Volume 94 fL (80-94); Mean Platelet Volume 8.1 fL (7.4-10.4); Nucleated Red Blood Cells % 0.7; Platelet Count 119 10^3/ul (150-450); Red Blood Count 4.03 10^6/ul (4.00-5.40); Red Cell Distribution Width 13 % (10.5-15); White Blood Count 7.5 10^3/ul (3.5-10.8)
[2018-05-09 07:27] LABS: EGFR Non-African American 94.9 (>60)
[2018-05-09] MEDS ORDERED: Aspirin EC TAB* 81 MG TAB.EC PO SCH (09:00)
[2018-05-09] MEDS: Metoprolol Succinate XL TAB* 25 MG PO SCH (09:06)
[2018-05-09] MEDS: Ticagrelor* 90 MG TAB PO SCH ×2 (09:07→20:13)
[2018-05-09] MEDS: Aspirin 81 mg CHEW TAB* 81 MG TAB.CHEW PO SCH (09:07)
--- NOTE | 2018-05-09 11:14 | CATH ---
CC: Noe Fonseca MD; Brandon Byrd MD * CARDIAC CATHETERIZATION REPORT: DATE OF PROCEDURE: 05/08/18 - ROOM #[id number] PROCEDURE: Cardiac catheterization including coronary angiography. INDICATION: Acute coronary syndrome. INDICATION: The patient is a 57-year-old gentleman with little past medical history who was admitted to the hospital with chest pain, positive troponin, consistent with acute coronary syndrome. An echocardiogram done just before the procedure demonstrated low-normal LV systolic function. Ejection fraction 45-50%. There was inferior wall hypokinesis. No significant valvular abnormalities. DESCRIPTION OF PROCEDURE: The patient was brought to the cardiac catheterization lab in a fasting state. Informed consent had been obtained prior to the procedure. All labs were reviewed. The patient was placed supine on the procedure table. His right radial wrist area was prepped and draped in the usual fashion. 1% lidocaine was used for local anesthesia. The radial artery was entered by a Seldinger technique and a guidewire was placed. Over the guidewire, a 6-Cymraes hydrophilic sheath was placed through which a cocktail of heparin, nitroglycerin, and verapamil was infused. The patient underwent coronary angiography using a 6-Cymraes AR1 catheter and a 6-Cymraes AL1 catheter. At the end of the procedure, the patient went on to angioplasty and stenting of his right coronary artery. Please see Dr. Byrd's note for that procedure. The patient had a total of 80 mg of contrast and 4.5 minutes of fluoro time were used. FINDINGS: 1. Left main artery: The left main was normal in size. It bifurcated into the LAD and circumflex. There is no evidence of stenosis. 2. Left anterior descending artery: The LAD was normal in size. It gave off 2 diagonal vessels. The LAD itself had a mid 30% stenosis. The distal portion of the LAD had a 20% stenosis. 3. Left circumflex artery: The circumflex artery was normal in size. It gave off 3 obtuse marginal branches. The proximal left circumflex artery was without disease. The mid left circumflex artery just before the second obtuse marginal had an eccentric 60% stenosis. The first OM vessel had an ostial 60% stenosis. The overall size of the first obtuse marginal was a 2 mm vessel. The left circumflex artery continued in the AV groove and did not have any significant disease. The third obtuse marginal had a branch vessel with a 70% stenosis to it. Right coronary artery: The RCA was occluded in the mid vessel. There was evidence of left to right collaterals from the LAD. IMPRESSION: 1. Occluded right coronary artery with left to right collaterals from the LAD which were faint. 2. 60% stenosis to the mid left circumflex artery. 3. 70% stenosis to the branch vessel of OM3. 4. Mild disease to the LAD. RECOMMENDATION: The patient will undergo angioplasty and stenting of the right coronary artery. [id number]/[facility] #: [id number] REJI
--- NOTE | 2018-05-09 13:34 | PN ---
Subjective Date of Service: 05/09/18 Interval History: HOSPITALIST PROGRESS NOTE Patient seen and examined at bedside. Care reviewed and d/w Katrina Benjamin RN. He feels well today, denies chest pain, palpitations, dyspnea. Able to ambulate around unit with no symptoms. Family History: Unchanged from Admission Social History: Unchanged from Admission Past Medical History: Unchanged from Admission Objective Active Medications: Acetaminophen (Tylenol Tab*) 650 mg PO Q4H PRN PRN Reason: HEADACHE/PAIN Aspirin (Aspirin 81 Mg Chew Tab*) 81 mg PO DAILY [facility] Last Admin: 05/09/18 09:07 Dose: 81 mg Atorvastatin Calcium (Lipitor*) 80 mg PO 2200 [facility] Last Admin: 05/08/18 20:59 Dose: 80 mg Docusate Sodium (Colace Cap*) 100 mg PO DAILY PRN PRN Reason: CONSTIPATION Metoprolol Succinate (Toprol Xl Tab*) 25 mg PO DAILY [facility] Last Admin: 05/09/18 09:06 Dose: 25 mg Morphine Sulfate (Morphine Vial*) 1 mg IV Q1H PRN PRN Reason: SEVERE PAIN Last Admin: 05/08/18 11:08 Dose: 1 mg Nitroglycerin (Nitroglycerin Tab 0.4 Mg*) 0.4 mg SL Q5M PRN PRN Reason: ANGINA Ondansetron HCl (Zofran Inj*) 4 mg IV Q4H PRN PRN Reason: NAUSEA Ticagrelor (Brilinta*) 90 mg PO BID [facility] Last Admin: 05/09/18 09:07 Dose: 90 mg Zolpidem Tartrate (Ambien Tab*) 5 mg PO BEDTIME PRN PRN Reason: INSOMNIA Vital Signs - 8 hr 05/09/18 05/09/18 05/09/18 06:00 06:01 07:00 Temperature Pulse Rate 53 56 Respiratory 15 15 18 Rate Blood Pressure 118/63 93/52 (mmHg) O2 Sat by Pulse 96 97 Oximetry 05/09/18 05/09/18 05/09/18 07:01 07:08 07:59 Temperature 99.3 F Pulse Rate 56 52 Respiratory 14 19 Rate Blood Pressure 102/56 (mmHg) O2 Sat by Pulse 95 95 Oximetry 05/09/18 05/09/18 05/09/18 08:00 08:01 09:00 Temperature Pulse Rate 66 66 63 Respiratory 17 17 17 Rate Blood Pressure 132/83 (mmHg) O2 Sat by Pulse 95 94 98 Oximetry 05/09/18 05/09/18 05/09/18 09:01 10:00 10:02 Temperature Pulse Rate 62 73 84 Respiratory 16 28 21 Rate Blood Pressure 119/83 122/101 (mmHg) O2 Sat by Pulse 100 95 83 Oximetry 05/09/18 05/09/18 11:00 11:46 Temperature 100.0 F Pulse Rate Respiratory 16 Rate Blood Pressure (mmHg) O2 Sat by Pulse Oximetry Oxygen Devices in Use Now: None Appearance: Pleasant gentleman sitting up in bed in NAD. Eyes: No Scleral Icterus Ears/Nose/Mouth/Throat: Mucous Membranes Moist Neck: Trachea Midline Respiratory: Symmetrical Chest Expansion and Respiratory Effort, Clear to Auscultation Cardiovascular: NL Sounds; No Murmurs; No JVD, RRR Extremities: No Edema, - - Right wrist site with no hematoma or ecchymosis, good pulses, sensation intact Neurological: Alert and Oriented x 3, NL Muscle Strength and Tone Result Diagrams: 05/09/18 06:15 05/09/18 06:15 Assess/Plan/Problems-Billing Assessment: Mr Sue is a 57yo M with NS PMH who presented to ED with c/o chest pain, found to have a NSTEMI. - Patient Problems (1) NSTEMI (non-ST elevated myocardial infarction) Comment: - Cardiac cath revealed occluded RCA s/p stent, 60% mid LCx, 70% OM3. - Echo showed EF 45-50% with inferior wall hypokinesis. - Continue management with Aspirin, Brilinta, Atorvastatin, Metoprolol. - Encourage activity. - Transfer to Telemetry. (2) V-tach Comment: - Patient had non sustained Vtach, asymptomatic, prior to cath - no further episodes so far. - Continue Metoprolol and monitor on Telemetry. (3) DVT prophylaxis Comment: - SCD while in bed. - Encourage ambulation. (4) Full code status Status and Disposition: Inpatient.
--- NOTE | 2018-05-09 17:55 | CATH ---
CC: Dr. Fonseca; Dr. Mercedes * INTERVENTIONAL REPORT: DATE OF PROCEDURE: 05/08/18 INDICATION FOR THE PROCEDURE: I asked by Dr. Mercedes to perform intervention into totally occluded distal right coronary artery on Mr. Sue in light of his late presentation of probable inferior wall myocardial infarction with continued chest symptoms. EQUIPMENT UTILIZED: 1. Guide catheter - a 6-Nepalese Heartrail 3 IR 1.5 curved catheter. 2. Interventional wire - 300 length All Star wire, a 300 length ChoICE Floppy wire, a 190 length All Star wire. 3. Angioplasty balloon catheters - a 2.0 x 12 mm long Emerge balloon, a 2.5 x 12 mm long Emerge balloon. 4. Stent utilized - a 2.75 x 12 mm long Synergy drug-eluting stent. 5. Post stent deployment balloon inflation catheter - a 2.75 x 12 mm long NC Emerge. MEDICATIONS GIVEN DURING THE INTERVENTIONAL PROCEDURE: After a CT was checked and found to be subtherapeutic, Angiomax bolus and Angiomax drip was started. The patient received nitroglycerin into coronary as well. DESCRIPTION OF PROCEDURE: Guiding views were obtained utilizing the Heartrail 3 6- Nepalese IR1.5 curved catheter. Following this, a CT had been checked and found to be subtherapeutic. The patient received Angiomax bolus and Angiomax drip. Initially, an Emerge 2.5 x 12 mm balloon over a exchange length All Start 300 cm wire down the right coronary artery. When the lesion at the PDA was identified, the decision was made to double wire and perform kissing balloon. This was performed utilizing the 2.0 x 12 mm long Emerge balloon in the PDA and the 2.5 x 12 Emerge balloon in the main body of the right coronary artery. Following this, the wire was left in place in the PDA and the 2.75 x 12 mm long stent was deployed. The wires were then exchanged with the distal right coronary wire inserted into the PDA and the PDA wire inserted into the distal right and postdeployment balloon inflations were made with the high pressure. Following this, the artery was assessed for results. At the end of the case, catheters and sheath were removed and hemostasis was obtained with a Vasc band. The reverse Barbeau was found to be a B. RESULTS: - Successful reopening of totally occluded right coronary artery with subsequent balloon angioplasty of PDA and distal right coronary artery and stenting of distal right coronary artery with a 2.75 x 12 mm long Synergy drug eluding stent reducing a significant 90% lesion to 0% with TIMI3 flow, no dissection seen. OVERALL ASSESSMENT: Successful reconstitution of right coronary artery, unfortunately albeit with a late presentation. He already has significant cardiac enzyme spill and I anticipate a abrupt significant raise after opening up this artery. Dual antiplatelet therapy for clearly a years' time is highly recommended and aggressive risk factor management under Dr. Mercedes's guidance, his primary associate teacher should be pursued. [id number]/[facility] #: [id number] MTDD
--- NOTE | 2018-05-09 18:22 | PN ---
Subjective Date of Service: 05/09/18 - CC: CP, resolved Interval History: No further CP since stenting yesterday. Walking the halls w/o problems. Lots of questions. Medications Active Medications: Acetaminophen (Tylenol Tab*) 650 mg PO Q4H PRN PRN Reason: HEADACHE/PAIN Aspirin (Aspirin 81 Mg Chew Tab*) 81 mg PO DAILY [facility] Last Admin: 05/09/18 09:07 Dose: 81 mg Atorvastatin Calcium (Lipitor*) 80 mg PO 2200 [facility] Last Admin: 05/08/18 20:59 Dose: 80 mg Docusate Sodium (Colace Cap*) 100 mg PO DAILY PRN PRN Reason: CONSTIPATION Metoprolol Succinate (Toprol Xl Tab*) 25 mg PO DAILY [facility] Last Admin: 05/09/18 09:06 Dose: 25 mg Morphine Sulfate (Morphine Vial*) 1 mg IV Q1H PRN PRN Reason: SEVERE PAIN Last Admin: 05/08/18 11:08 Dose: 1 mg Nitroglycerin (Nitroglycerin Tab 0.4 Mg*) 0.4 mg SL Q5M PRN PRN Reason: ANGINA Ondansetron HCl (Zofran Inj*) 4 mg IV Q4H PRN PRN Reason: NAUSEA Ticagrelor (Brilinta*) 90 mg PO BID [facility] Last Admin: 05/09/18 09:07 Dose: 90 mg Zolpidem Tartrate (Ambien Tab*) 5 mg PO BEDTIME PRN PRN Reason: INSOMNIA Objective Vital Signs: Temp Pulse Resp BP Pulse Ox 99.2 F 63 16 125/76 100 05/09/18 15:42 05/09/18 15:42 05/09/18 15:42 05/09/18 15:42 05/09/18 15:42 Oxygen Devices in Use Now: None Appearance: fit middle aged male in no distress, sitting with family. Eyes: No Scleral Icterus, PERRLA Ears/Nose/Mouth/Throat: Clear Oropharnyx, Mucous Membranes Moist Neck: NL Appearance and Movements; NL JVP, Trachea Midline Respiratory: Symmetrical Chest Expansion and Respiratory Effort, Clear to Auscultation Cardiovascular: NL Sounds; No Murmurs; No JVD, RRR - no rubs Abdominal: NL Sounds; No Tenderness; No Distention Extremities: No Edema - Right wrist cath site w/o hematoma or ecchymosis. Skin: No Rash or Ulcers Neurological: Alert and Oriented x 3, NL Gait, NL Muscle Strength and Tone Lines/Tubes/Other Access: Clean, Dry and Intact Peripheral IV Laboratory Results: 05/09/18 06:15 05/09/18 06:15 INR (Anticoag Therapy) 0.95 (0.77-1.02) 05/08/18 08:01 APTT 30.8 seconds (26.0-36.3) 05/08/18 08:01 Total Bilirubin 0.60 mg/dL (0.2-1.0) 05/08/18 08:01 AST 56 U/L (13-39) H 05/08/18 08:01 ALT 30 U/L (7-52) 05/08/18 08:01 Alkaline Phosphatase 81 U/L (34-104) 05/08/18 08:01 CK-MB (CK-2) 150.8 ng/mL (0.6-6.3) H 05/09/18 02:20 B-Natriuretic Peptide 43 pg/mL (<=100) 05/08/18 08:01 Total Protein 7.2 g/dL (6.4-8.9) 05/08/18 08:01 Albumin 4.1 g/dL (3.2-5.2) 05/08/18 08:01 Globulin 3.1 g/dL (2-4) 05/08/18 08:01 Albumin/Globulin Ratio 1.3 (1-3) 05/08/18 08:01 Triglycerides 95 mg/dL 05/09/18 06:15 Cholesterol 154 mg/dL 05/09/18 06:15 LDL Cholesterol 98 mg/dL 05/09/18 06:15 HDL Cholesterol 36.6 mg/dL 05/09/18 06:15 TSH 1.41 mcIU/mL (0.34-5.60) 05/08/18 08:01 05/08/18 05/08/18 05/08/18 08:01 14:28 20:50 Troponin I 3.06 H* > 82.00 H* > 82.00 H* 05/09/18 02:20 Troponin I 70.93 H* Diagnostic Imaging: Cardiac cathetierzation 05/08/18: Occluded RCA with L-> collateral flow (Stented ). Cx moderate disease, LAD nominal disease. ECHO 05/08/18: inferior wall + apex hypo/akinetic, EF 45-50%, trace valve leaks. EKG Data: ECG 05/09/18: NSR, Q's III, aVF, mild STelevation III, aVF. Monitor: PVC's. Assessment/Plan 57 yo male who presented several hours into an IWMI s/p stenting and CP free. PVC's but no sustained dysrhythmias post intervention. CAD risks include FHx (maternal GF). CAD: Post stent: continue ASA, Brilinta. -enroll in cardiac rehab. -Continue BB -Continue high dose statin. -May benefit from ACEI if able to get on with BP. -Monitor with ambulation overnight. -outpatient may consider looking for procoagulent as not a lot of CAD risks. I answered questions on activity, goals of meds, damage of heart and more. Tentative discharge in AM unless dysrhythmias. Pt should follow up with Dr Mercedes next week.
[2018-05-09] MEDS: Atorvastatin* 80 MG TAB PO SCH (20:12)
[2018-05-10] MEDS: Aspirin 81 mg CHEW TAB* 81 MG TAB.CHEW PO SCH (08:04)
[2018-05-10] MEDS: Metoprolol Succinate XL TAB* 25 MG PO SCH (08:04)
[2018-05-10] MEDS: Ticagrelor* 90 MG TAB PO SCH (08:04)
[2018-05-10 11:52] VITALS: BP 130/77
[2018-05-10 12:11] LABS: Hematocrit 41 % (42-52); Hemoglobin 14.5 g/dl (14.0-18.0); Mean Corpuscular HGB Conc 35 g/dl (31-36); Mean Corpuscular Hemoglobin 33 pg (27-31); Mean Corpuscular Volume 94 fL (80-94); Platelet Count 173 10^3/ul (150-450); Red Blood Count 4.41 10^6/ul (4.00-5.40); Red Cell Distribution Width 12 % (10.5-15); White Blood Count 8.5 10^3/ul (3.5-10.8)
--- NOTE | 2018-05-10 22:24 | DS ---
DISCHARGE SUMMARY: DATE OF ADMISSION: 05/08/18 DATE OF DISCHARGE: 05/10/18 PRIMARY CARE PROVIDER: Dr. Fonseca. UPPER SHAPER: Dr. Mercedes. PRINCIPAL DIAGNOSIS: Non-ST elevation [place]. HOSPITAL COURSE: Mr. Sue is a 57-year-old male who presented to the emergency room on 05/08/18 with complaints of chest pain. Chest pain had begun on the evening prior to admission. He thought it was heartburn, so he took some Tums and had some mild relief, but was uncomfortable the entire night. When he woke up in the morning, he was still having discomfort and thus decided to present to the emergency room for evaluation. In the ER, the patient was found to have a troponin of 3.06. On EKG, he had J-point elevation and nondiagnostic Q-waves in the inferior leads. It was determined that the patient should undergo urgent cardiac catheterization. The patient underwent catheterization initially by Dr. Mercedes who identified an occluded right coronary with left to right collateral from the LAD, which were faint. A 60% stenosis to the mid left circumflex artery and 70% stenosis to the branch vessel of OM3. Dr. Byrd then took over the catheterization and placed a drug- eluting stent to the RCA lesion. Balloon angioplasty of the PDA was also performed. The patient was subsequently started on Brilinta in addition to aspirin. He was also started on metoprolol XL and high dose Lipitor. These will all be continued in addition to p.r.n. nitroglycerin. Dr. Galeano did make note on her last followup visit of 05/09/18 that outpatient consideration for procoagulant state could be considered, especially as the patient does not have significant coronary risk factors. The patient has been instructed to follow up with Dr. Mercedes on 05/15/18 at 2 p.m. Activity level is as per post cath instructions. Of note, prior to discharge, the patient did notice scant amounts of blood in his urine. My suspicion is he may have blood related to being on heparin, aspirin, and Brilinta. The patient has been instructed to continue to monitor his urine for further signs of bleeding. He has been instructed that he absolutely cannot stop his aspirin or Brilinta for any reason without discussing with Dr. Mercedes first. The patient has also been instructed if the hematuria continues for the next several days, to contact his primary care provider to get a referral to Urology for potential cystoscopy. On the day of discharge, the patient is awake, alert, and oriented, sitting up in bed, in no acute distress. His cardiac exam reveals a normal S1, S2 with a regular rate and rhythm. His lungs were clear. He had no lower extremity edema. His abdomen is soft, nontender, and nondistended. FOLLOWUP CONCERNS: The patient is being discharged home today, 05/10/18. Activity level is as per post cath instructions. CONDITION ON DISCHARGE: Stable. TIME SPENT: Thirty five minutes was spent discharging this patient. [id number]/[facility] #: [id number] MTDD
== END 2018-05-10 13:55 | disposition home or self-care (01) | DRG 174 ==
LOC: ED 07:44 → ICU 09:53 → MEDTELE 05-09 12:15
PROVIDERS: ADMIT Internal Medicine; ATTEND Hospitalist
PROC: 4A023N7 Measurement of Cardiac Sampling and Pressure, Left Heart, Percutaneous Approach (ICD-10-PCS; 2018-05-08)
PROC: B2111ZZ Fluoroscopy of Multiple Coronary Arteries using Low Osmolar Contrast (ICD-10-PCS; 2018-05-08)
PROC: 027034Z Dilation of Coronary Artery, One Artery with Drug-eluting Intraluminal Device, Percutaneous Approach (ICD-10-PCS; principal; 2018-05-08 11:30)
PROC: 02703ZZ Dilation of Coronary Artery, One Artery, Percutaneous Approach (ICD-10-PCS; 2018-05-08 11:30)
DX: I21.4 Non-ST elevation (NSTEMI) myocardial infarction (principal); I47.2 Ventricular tachycardia; I49.3 Ventricular premature depolarization; I25.10 Atherosclerotic heart disease of native coronary artery without angina pectoris; R79.1 Abnormal coagulation profile; Z82.49 Family history of ischemic heart disease and other diseases of the circulatory system; Z83.3 Family history of diabetes mellitus; Z85.71 Personal history of Hodgkin lymphoma; Z72.89 Other problems related to lifestyle; Z79.02 Long term (current) use of antithrombotics/antiplatelets; Z79.82 Long term (current) use of aspirin; R31.9 Hematuria, unspecified
CPT/HCPCS: 36415; 71045; 80048; 80053; 80061; 81003; 82550; 82553; 83605; 83735; 83880; 84443; 84484; 85025; 85027; 85347; 85610; 85730; 87641; 93005; 93306; 93454; 99156; 99157; 99285; A9270-GY; C1725; C1769; C1876; C1887; C9600-RC; J0583; J1644; J2250; J2270; J3010; J3490